=== PATIENT | male | born 1950 | race Caucasian/White ===

== ENCOUNTER → 2016-10-03 | Outpatient (CLI) | payer OTHER | LOC: MOB LAB 11:10 | DX: J02.9 Acute pharyngitis, unspecified (principal); R05 Cough; B34.9 Viral infection, unspecified | CPT/HCPCS: 87400; 87880; 99213; G0463 ==

== ENCOUNTER 2019-01-10 05:57 | Inpatient (IN) ==
[~2019-01-10 05:57] MED LIST: ACETAMINOPHEN 500 MG TABLET PO ONE; CELECOXIB 200 MG CAPSULE PO ONE; GABAPENTIN 300 MG CAPSULE PO ONE; LIDOCAINE W/ SODIUM BICARB 0.5 ML SYR ONE; Lactated Ringers 1,000 ML PRIMARY IV ONE; PANTOPRAZOLE 20 MG TABLET.DR PO ONE; ceFAZolin Inj 2gm (Premix) 2 GM/50 ML BAG IV ONE
[2019-01-10] MEDS ORDERED: ACETAMINOPHEN 500 MG TABLET PO ONE (06:00)
[2019-01-10] MEDS ORDERED: CELECOXIB 200 MG CAPSULE PO ONE (06:00)
[2019-01-10] MEDS ORDERED: LIDOCAINE W/ SODIUM BICARB 0.5 ML SYR SUBD ONE (06:00)
[2019-01-10] MEDS ORDERED: PANTOPRAZOLE 20 MG TABLET.DR PO ONE (06:00)
[2019-01-10] MEDS ORDERED: ceFAZolin Inj 2gm (Premix) 2 GM/50 ML BAG IV ONE (06:00)
[2019-01-10] MEDS ORDERED: Nasal Sanitizer POPSWAB ampule 3 AMP (Nozin) PREOP DOSE ENOS SCH (06:00)
[2019-01-10] MEDS ORDERED: GABAPENTIN 300 MG CAPSULE PO ONE (06:00)
[2019-01-10] MEDS: Lactated Ringers 1,000 ML PRIMARY IV SCH ×3 (06:27→14:23)
[2019-01-10] MEDS ORDERED: Sodium Chloride 0.9% vial 40 ML ONE (06:55)
[2019-01-10] MEDS ORDERED: BUPivacaine Liposome/PF (Exparel) Inj 20ml vial INFIL ONE (06:56)
[2019-01-10] MEDS ORDERED: BACITRACIN 50,000 UNIT VIAL IRRIG ONE (06:56)
[2019-01-10] MEDS ORDERED: Ketorolac Inj 30 MG, BUPivacaine Inj 0.25% PF 150 MG SPLASH ONE ×2 (07:30)
[2019-01-10 07:35] LABS: BILIRUBIN,URINE NEGATIVE (NEG); CLARITY,URINE CLEAR (CLEAR); COLOR,URINE YELLOW (Y); GLUCOSE, URINE (UA) NEGATIVE (NEG); OCCULT BLOOD,URINE NEGATIVE (NEG); PROTEIN,URINE NEGATIVE (NEG); UROBILINOGEN,URINE 0.2 EU/dL (0.2)
[2019-01-10 07:36] LABS: URINE SAMPLE TYPE CLEAN CATCH URINE
[2019-01-10] MEDS ORDERED: MIDAZOLAM HCL 2 MG/2 ML VIAL ONE (07:38)
[2019-01-10] MEDS ORDERED: PROPOFOL 10 MG/1 ML (200 MG/20 ML) VIAL IV ONE ×2 (07:38)
[2019-01-10] MEDS ORDERED: SUGAMMADEX SODIUM 200 MG/2 ML VIAL IV ONE (08:29)
[2019-01-10] MEDS ORDERED: ONDANSETRON 4 MG/2 ML VIAL ONE (08:30)
[2019-01-10] MEDS ORDERED: KETOROLAC 30 MG/1 ML VIAL ONE (08:30)
[2019-01-10] MEDS ORDERED: TRANEXAMIC ACID 1,000 MG / 10 ML VIAL ONE ×2 (08:30→08:31)
[2019-01-10] MEDS ORDERED: fentaNYL Inj 250 MCG/5 ML VIAL ONE (08:32)
[2019-01-10] MEDS ORDERED: HYDROmorphone 2 MG/1 ML ONE ×2 (08:32→11:59)
[2019-01-10] MEDS ORDERED: SUCCINYLCHOLINE CHLORIDE 20 MG/1 ML - 10 ML ONE (10:16)
[2019-01-10] MEDS ORDERED: ROCURONIUM 10 MG/1 ML - 5 ML VIAL IVP ONE (10:17)
[2019-01-10] MEDS ORDERED: LIDOCAINE W/ SODIUM BICARB 0.5 ML SYR SUBD PRN (10:59)
[2019-01-10] MEDS ORDERED: ONDANSETRON 4 MG/2 ML VIAL IVP PRN ×2 (10:59→12:36)
--- NOTE | 2019-01-10 10:59 | CRNA.PROGR ---
Anesthesia Recovery Phase I - Post Anesthesia Evaluation Patient's Condition on Arrival in Phase I: Stable Patient's Condition on Arrival in Phase II: Stable (stable at patient handoff and DC to floor) Pain Level: 4
--- NOTE | 2019-01-10 10:59 | CRNA.PROGR ---
Anesthesia Time - Procedure/Recovery Time Start Date: 01/10/19 End Date: 01/10/19 Anesthesia : Time In: 07:59 Anesthesia : Time Out: 10:58 Anesthesia : Total Time: 179 - Total Anesthesia Time Total Anesthesia Time (minutes): 179 - Other Weight: 98.883 kg Height: 6 ft 1 in Body Mass Index (BMI): 28.8 Physical Status: P3 Anesthesia Type: General Anesthesia : ET (to pacu stable, stable at handoff)
--- NOTE | 2019-01-10 11:01 | CRNA.PROGR ---
Anesthesia Note - Progress Notes Anesthesia Progress Note: stabel at patient handoff, and at D/C to floor - NAARC
--- NOTE | 2019-01-10 11:06 | ORTHO.OP ---
Surgery Date: 01/16/19 Preoperative Diagnosis: left hip OA Postoperative Diagnosis: same Procedure: Left IDALMIS Surgeon: Prashant Cabral MD Ferryboat Helper: Leatha Kennedy PA-C Anesthesia Provider: Reji Alonso MD Anesthesia Type: General, Regional (spinal) Estimated Blood Loss (mL): 100 Fluids: 1600 mL LR Pathology: none Findings: See Operative Note Indications: See Operative Note Complications: None
[2019-01-10] MEDS: fentaNYL Inj 100 MCG/2 ML VIAL IVP PRN ×4 (11:15→11:52)
[2019-01-10] MEDS ORDERED: fentaNYL Inj 100 MCG/2 ML VIAL ONE ×2 (11:17→11:43)
[2019-01-10 11:32] LABS: Hematocrit [HCT] 40.8 % (42.0-52.0)
[2019-01-10] MEDS ORDERED: HYDROmorphone 2 MG/1 ML IVP PRN (11:58)
--- NOTE | 2019-01-10 12:18 | DI ---
XR HIP COMPLETE MIN 2VW U/L,01/10/2019 10:54 AM: Clinical History: Left hip pain Previous Exam: Jan 11 2018 Findings: AP view of the pelvis, AP view of the left hip and crosstable lateral view of the left hip are obtain ed, and demonstrate anatomic alignment without fractures. Patient is status post left total hip arthr oplasty. Postsurgical changes are seen in the deep pelvis. There are degenerative changes involving the right hip with osteophyte formation. There is no evidence of hardware loosening. There is a metallic density overlying the deep pelvis. This is believed to be overlying the skin. A nonobstructive bowel gas pattern is seen. No pathologic calcifications are seen. Impression: Postsurgical changes consistent with left total hip arthroplasty. There is no fracture and no evidenc e of hardware loosening.
[2019-01-10] MEDS ORDERED: CALCIUM CARBONATE 500 MG (TUMS) CHEWABLE TABLET PO PRN (12:36)
[2019-01-10] MEDS ORDERED: MAG HYDROX/AL HYDROX/SIMETH 30 ML SUSP PO PRN (12:36)
[2019-01-10] MEDS ORDERED: LIDOCAINE HCL 2 % 10 ML JELLY URO-JECT TOPICAL PRN (12:36)
[2019-01-10] MEDS ORDERED: diphenhydrAMINE 25 MG CAPSULE PO PRN (12:36)
[2019-01-10] MEDS ORDERED: BISACODYL 5 MG TABLET PO PRN (12:36)
--- NOTE | 2019-01-10 13:28 | PDOC ---
HPI - History of Present Illness Date of Service: 01/10/19 Time of Service: 13:23 Chief Complaint: Left hip pain History of Present Illness: This very pleasant 68-year-old male with hypertension, GERD, and hypothyroidism, as well as left hip posterior arthritis who presented today for a left hip replacement performed by Dr. Cabral. See his postoperative notes regarding procedure performed. The patient had had pain in the left hip for some time. He tried tramadol. He failed conservative measures in opted for that replacement today. He was seen by his primary care physician prior to the procedure. Postoperatively, he denies any chest pain, shortness breath, nausea or vomiting and states his pain is well controlled. Past Medical History Medical History: 1. Hypertension. 2. GERD. 3. Hypothyroidism. 4. History of colon cancer. 5. History of thyroid cancer. 6. History of renal cell cancer Surgical History: History of partial nephrectomy (Acute). History of prostate biopsy (Acute). History of thyroidectomy (Acute). History of colonoscopy with polypectomy (Resolved). History of esophagogastroduodenoscopy (Resolved). History of lithotripsy (Resolved). 1. History of musculoskeletal system surgery. 2. Status post cholecystectomy. 3. Status post knee surgery. 4. Status post shoulder surgery. 5. Status post tonsillectomy Pertinent Family History: He states both his parents passed on from cancer Past Social History: Does not currently smoke. for 29 years. Has 3 children from a prior marriage. Does not drink alcohol. Tobacco Use: Former Smoker Do you dip or chew tobacco: No In the Past 12 Months, Have Used or Abuse Any of the Following Substance: None Alcohol Use: None Medication / Allergies Home Medications: Home Medications Medication Instructions Recorded Confirmed Omeprazole Magnesium [Prilosec Otc] 20 mg PO DAILY 10/12/17 01/10/19 amlodipine 5 mg tablet 5 mg PO QDAY #90 tab 07/12/18 01/10/19 levothyroxine 25 mcg capsule 25 mcg PO QDAY #90 cap 07/12/18 01/10/19 Hydrocodone/Acetaminophen 1 - 2 ea PO Q4-6H PRN #70 tab 01/10/19 [Hydrocodon-Acetaminoph 7.5-325] Allergies/Adverse Reactions: Allergies Allergy/AdvReac Type Severity Reaction Status Date / Time morphine Allergy Severe NAUSEA Verified 01/10/19 12:37 Review of Systems - Respiratory Respiratory: REPORTS: Negative System Review - Cardiovascular Cardiovascular: REPORTS: Negative System Review - Gastrointestinal Gastrointestinal / Abdominal: REPORTS: Negative System Review - Genitourinary Genitourinary: REPORTS: Negative System Review - Musculoskeletal Musculoskeletal: REPORTS: See HPI Exam - Vitals Vital Signs: Vital Signs Temperature 96.9 F Pulse Rate [Pulse Oximeter] 69 Pulse Rate 68 Respiratory Rate 18 Blood Pressure [Left Arm] 141/83 Blood Pressure 156/92 Pulse Ox 95 Oxygen Flow Rate 3 Oxygen Delivery Method Nasal Cannula Height 6 ft 1 in Weight 218 lb - General General Appearance: No Acute Distress, Cooperative - Head Head Exam: Normal Inspection, Normocephalic, Atraumatic - Eye Eye Exam: POSITIVE: No Scleral Icterus - ENT ENT Exam: POSITIVE: Mucous Membranes Moist - Neck Neck Exam: Normal Inspection, No Tenderness, No Lymphadenopathy, No Thyromegaly, JVP is not Raised - Respiratory Respiratory Exam: POSITIVE: Clear to Auscultation - Bilaterally, Breathing Non Labored - Cardiovascular Cardiovascular Exam: POSITIVE: RRR, No Murmur, No Clicks, No Gallops, No Rubs, No JVD - GI/Abdominal GI/Abdominal Exam: POSITIVE: Normal Bowel Sounds, Non Tender, Non Distended, Soft - Rectal Rectal Exam: POSITIVE: Deferred - External Exam: POSITIVE: Deferred Exam: POSITIVE: Deferred - Extremities Extremities Exam: POSITIVE: No Clubbing Present, No Edema Present, No Cyanosis Present Additional Extremities Exam Details: The left hip has an incision that is dressed. Dressing is clean, dry, intact. - Neurological Neurological Exam: POSITIVE: Alert, Oriented x 3, No Facial Droop, Speech Intact / Clear - Psychiatric Psychiatric Exam: POSITIVE: Normal Affect, Normal Mood Results - Labs CBC and BMP: 01/10/19 11:29 Additional Lab Results: 01/03/19 01/03/19 01/03/19 10:02 10:02 10:02 WBC 5.90 Hgb Plt Count 222 PT 12.8 H INR 1.11 Sodium 143 Potassium 4.2 Chloride 106 Carbon Dioxide 23 Anion Gap 14 BUN 24 H Creatinine 1.1 Estimated GFR > 60 Glucose 90 Calculated Osmolality 299.0 H Calcium 9.3 Total Bilirubin 0.6 AST 40 ALT 34 Alkaline Phosphatase 58 Albumin 4.4 Globulin 2.8 Albumin/Globulin Ratio 1.50 01/10/19 11:29 WBC Hgb 14.0 Plt Count PT INR Sodium Potassium Chloride Carbon Dioxide Anion Gap BUN Creatinine Estimated GFR Glucose Calculated Osmolality Calcium Total Bilirubin AST ALT Alkaline Phosphatase Albumin Globulin Albumin/Globulin Ratio - EKG Data -: EKG Interpreted by Me (From 01/03/2019) Rate: Normal EKG Shows Normal: Sinus Rhythm Assessment and Plan - Patient Problems (1) Hypertension Current Visit: No Status: Chronic Code(s): I10 - Essential (primary) hypert ension Qualifiers: Hypertension type: essential hypertension Qualified Code(s): I10 - Essential (primary) hypertension (2) GERD (gastroesophageal reflux disease) Current Visit: Yes Status: Acute Code(s): K21.9 - Gastro-esophageal reflux disease without esophagitis (3) Hypothyroidism Current Visit: Yes Status: Chronic Code(s): E03.9 - Hypothyroidism, unspecified Qualifiers: Hypothyroidism type: postoperative Qualified Code(s): E89.0 - Postprocedural hypothyroidism (4) Status post left hip replacement Current Visit: Yes Status: Acute Code(s): Z96.642 - Presence of left artificial hip joint - Assessment / Plan Additional Assessment/Plan Details: PT and OT, DVT prophylaxis, and pain management as per orthopedics. I did recommend having the patient remain on his home medications for hypertension including Norvasc, and also continue thyroid replacement while in the hospital. Thank you for this consult. It will be the Hospitalist services pleasure to continue to advise on medical issues during the hospital stay
[2019-01-10] MEDS: AmLODIPine Tab 5 MG TABLET PO SCH (14:21)
[2019-01-10] MEDS: HYDROcodone-APAP 7.5 MG-325 MG TABLET PO PRN ×2 (14:23→19:19)
[2019-01-10] MEDS: ceFAZolin Inj 2gm (Premix) 2 GM/50 ML BAG IV SCH (17:07)
[2019-01-10] MEDS: DOCUSATE 100 MG CAPSULE PO SCH (20:54)
[2019-01-11] MEDS: ceFAZolin Inj 2gm (Premix) 2 GM/50 ML BAG IV SCH (00:12)
[2019-01-11] MEDS: Lactated Ringers 1,000 ML PRIMARY IV SCH ×2 (02:26→09:49)
[2019-01-11] MEDS: HYDROcodone-APAP 7.5 MG-325 MG TABLET PO PRN ×2 (04:49→10:41)
[2019-01-11 05:22] LABS: Hemoglobin [HGB] 11.3 g/dL (14.0-18.0); MEAN CORPUSCULAR HEMOGLOBIN 30.7 PG (27-31); MEAN CORPUSCULAR HGB CONC 34.2 g/dL (33-37); MEAN CORPUSCULAR VOLUME 89.7 FL (80-90); RED BLOOD COUNT 3.68 10^6/uL (4.70-6.10)
[2019-01-11 05:28] LABS: BLOOD UREA NITROGEN 15 mg/dL (7-22); BUN/CREATININE RATIO 16.66 (6-20)
[2019-01-11] MEDS ORDERED: LEVOTHYROXINE 25 MCG TABLET PO SCH (05:30)
[2019-01-11] MEDS ORDERED: OMEPRAZOLE 20 MG CAPSULE PO SCH (07:00)
[2019-01-11] MEDS: AmLODIPine Tab 5 MG TABLET PO SCH (08:14)
[2019-01-11] MEDS: DOCUSATE 100 MG CAPSULE PO SCH (08:15)
[2019-01-11 08:45] VITALS: BP 145/77; RESP 16; TEMP 97.8; O2SAT 91
[2019-01-11] MEDS ORDERED: ENOXAPARIN SODIUM 30 MG/0.3 ML SYRINGE SUBCUT SCH (09:00)
--- NOTE | 2019-01-11 10:44 | ORTHO.PROG ---
Last Taken Vital Signs: Vital Signs - Last Taken Temperature 97.8 F 01/11/19 08:40 Pulse Rate 75 01/11/19 08:40 Respiratory Rate 16 01/11/19 08:40 Blood Pressure 145/77 01/11/19 08:40 Pulse Ox 91 01/11/19 08:40 Subjective: Patient reports he slept ok last night. His pain is under control with PO pain meds. He has already been up walking to the bathroom without difficulties. He states he feels ready to go home today. Denies any CP, calf pain, SOB, F/C, paresthesias. Objective: Laboratory Results 01/10/19 01/11/19 01/11/19 11:29 04:25 04:25 WBC 11.11 H RBC 3.68 L Hgb 14.0 11.3 L Hct 40.8 L 33.0 L MCV 89.7 MCH 30.7 MCHC 34.2 RDW Std Deviation 42.8 RDW Coeff of Kush 13.5 Plt Count 197 MPV 11.0 Sodium 140 Potassium 4.2 Chloride 105 Carbon Dioxide 22 L Anion Gap 13 BUN 15 Creatinine 0.9 Estimated GFR > 60 BUN/Creatinine Ratio 16.66 Glucose 142 H Calculated Osmolality 292.0 Calcium 7.9 L Radiographs of the left hip show s/p Left IDALMIS with well fixed and positioned components. On exam, the prevena dressing is intact holding suction. Patient is A&O x 3 without any acute distress. NV intact. Negative calf tenderness. Assessment: POD 1 s/p routine Left IDALMIS overall doing well and ready to be discharged home. Plan: * Pain meds: continue hydrocodone prn upon discharge * DVT ppx: discharge home on ASA 81mg 1 tablet daily x 6 weeks and portable SCDs * Wound care: leave Prevena dressing in place until first PO appointment; may shower, but do not saturate dressing * WBAT with walker * begin outpatient PT by Wednesday * posterior hip restrictions * discharge home once cleared by PT * follow-up in 1 week as scheduled with ortho
--- NOTE | 2019-01-11 11:56 | PT.PROG ---
Progress Note Progress Note: S. Patient stated that he is feeling good this morning. He feels that he is ready to go home. O. Patient ambulated 150 feet around the nurses station and ascended and descended 3 stairs. Patient returned to his room where he was left in his chair with alarm and call light. A. Patient tolerated ambulation and stair training well with stand by guard assist. P. Patient has met all goals.
--- NOTE | 2019-01-11 14:44 | PTI REPORT ---
Thank you for the referral of Shaw Lares. He was seen on 01/10/19 for an inpatient evaluation status post left total hip arthroplasty. SUBJECTIVE: The patient is a 68-year-old male. The patient reports he currently does not feel any pain. He states he is eager to get up and walk around. The patient states that he lives in [place] with his and step son. He states he has one step to get into the house. The patient lives in a ranch style home. Prior to surgery the patient did not use an assistive device. The patient verbalized that he would like to go home by tomorrow afternoon. The patient reported that he did have a fall in the beginning of the winter; however, he fell into snow, so that broke his fall and he did not receive any injuries from that fall. PAST MEDICAL HISTORY: Past medical history can be found in the patient's medical record. OBJECTIVE FINDINGS: Ambulation: The patient was able to walk 100 feet without any pain and was able to put the majority of his weight through his left lower extremity. The patient demonstrated a good gait pattern; however, he needed minor cueing to keep the walker within arm's distance and to make sure that he is not pivoting the walker, but instead placing the walker and walking into it. The patient also needed verbal cues to help remind him to not pivot on that left hip. ASSESSMENT: The patient has a good prognosis. Problem List: Decreased strength in the left hip Patient must adhere to total hip precautions Short-Term Goals: To be met by discharge from inpatient: Patient will be able to transfer from bed to stand independently. Patient will be able to ambulate 100 feet with walker, weight-bearing as tolerated. Patient will be able to ascend and descend 5 stairs with walker, weight-bearing as tolerated. Patient will be instructed in total hip precautions. Long-Term Goals: To be met following discharge from inpatient: Patient will be seen by outpatient physical therapy. TREATMENT PLAN: Patient will be seen B.I.D during the week and one time per day over the weekend as an inpatient for transfers, gait training, stair training, and instruction in total hip precautions. INITIAL TREATMENT: Treatment today consisted of the initial evaluation followed by one unit of functional activity with working on walking. Dictated by: ELIZABETH Miller Supervised by: TEA Zuñiga
--- NOTE | 2019-01-11 14:52 | DCSUMMARY ---
Hospitalization Summary Admit Date: 01/10/2019 Discharge Date: 01/11/19 Primary Diagnosis:: status post left hip replacement Hospital Course: This very pleasant 68-year-old male with end-stage chest arthritis in the left hip. He failed conservative measures and opted for hip replacement done by Dr. Cabral on 01/10/2019. See his surgical notes regarding the procedure. The patient had an uneventful recovery from an orthopedic standpoint, see the orthopedic progress notes regarding this patient's stay. The orthopedic service will be managing and DVT prophylaxis, pain medications, and PT and OT instructions. His medical conditions, including hypertension, GERD, and hypothyroidism, did not have any exacerbations during hospital stay. Today, no completes of chest pain, shortness breath, nausea or vomiting. He states that his hip pain is present but controlled and he is doing very well with therapy and is ready to go home. Assessment and Plan: 1. As per discharge assessments noted 2. Disposition: Patient is discharged home. 3. Condition on discharge, stable and improved. 4. Diet: regular diet 5. Activities: resume activities as per orthopedic instructions 6. Follow-Up: 1. Dr. Arora one week 2. Dr. Cabral as recommended 7. Medications at the Time of Discharge: Home Medications Medication Instructions Recorded Confirmed amlodipine 5 mg tablet 5 mg PO QDAY #90 tab 07/12/18 01/10/19 levothyroxine 25 mcg capsule 25 mcg PO QDAY #90 cap 07/12/18 01/10/19 Tramadol HCl 50 mg PO BID 01/11/19 01/11/19 Pain medications and aspirin for DVT prophylaxis as per orthopedics 8. Time, care, counseling and coordination of care for this discharge is less than 30 minutes. Exam - Vitals Vital Signs: Vital Signs Temperature 97.8 F Temperature Source Temporal Artery Scan Pulse Rate [Pulse Oximeter] 75 Pulse Rate 64 Respiratory Rate 16 Blood Pressure [Left Arm] 145/77 Blood Pressure 142/88 Pulse Ox 91 Oxygen Flow Rate 2 Oxygen Delivery Method Nasal Cannula Height 6 ft 1 in Weight 218 lb - General General Appearance: No Acute Distress, Cooperative - Eye Eye Exam: POSITIVE: No Scleral Icterus - ENT ENT Exam: POSITIVE: Mucous Membranes Moist - Neck Neck Exam: JVP is not Raised - Respiratory Respiratory Exam: POSITIVE: Clear to Auscultation - Bilaterally, Breathing Non Labored - Cardiovascular Cardiovascular Exam: POSITIVE: RRR, No Murmur, No Clicks, No Gallops, No Rubs, No JVD - GI/Abdominal GI/Abdominal Exam: POSITIVE: Normal Bowel Sounds, Non Tender, Non Distended, Soft - Extremities Extremities Exam: POSITIVE: No Clubbing Present, No Edema Present, No Cyanosis Present - Neurological Neurological Exam: POSITIVE: Alert, Oriented x 3, Normal Gait (I observed the patient walk in the hallway with therapy and he did very well with his walker), No Facial Droop, Speech Intact / Clear, Moves All Extremities Equally Data Peritnent Studies: Laboratory Results 01/11/19 01/11/19 04:25 04:25 WBC 11.11 H RBC 3.68 L Hgb 11.3 L Hct 33.0 L MCV 89.7 MCH 30.7 MCHC 34.2 RDW Std Deviation 42.8 RDW Coeff of Kush 13.5 Plt Count 197 MPV 11.0 Sodium 140 Potassium 4.2 Chloride 105 Carbon Dioxide 22 L Anion Gap 13 BUN 15 Creatinine 0.9 Estimated GFR > 60 BUN/Creatinine Ratio 16.66 Glucose 142 H Calculated Osmolality 292.0 Calcium 7.9 L Patient Problems - Patient Problem List (1) Status post left hip replacement Status: Acute Code(s): Z96.642 - Presence of left artificial hip joint Category: Surgical (2) Hypertension Status: Chronic Code(s): I10 - Essential (primary) hypertension Qualifiers: Hypertension type: essential hypertension Qualified Code(s): I10 - Essential (primary) hypertension Category: Medical (3) GERD (gastroesophageal reflux disease) Status: Acute Code(s): K21.9 - Gastro-esophageal reflux disease without esophagitis Category: Medical (4) Hypothyroidism Status: Chronic Code(s): E03.9 - Hypothyroidism, unspecified Qualifiers: Hypothyroidism type: postoperative Qualified Code(s): E89.0 - Postprocedural hypothyroidism Category: Medical
--- NOTE | 2019-01-11 16:32 | OTI REPORT ---
Thank you for the referral of Shaw Lares. He was seen on 01/11/19 for an occupational therapy inpatient evaluation status post left total hip arthroplasty. SUBJECTIVE: The patient is a 68-year-old male who is being seen secondary to having a left posterior approach total hip arthroplasty. The patient lives at home with his and was independent with ADLs prior to admission. PAST MEDICAL HISTORY: Past medical history can be found in the patient's medical record. OBJECTIVE FINDINGS: General observations: While sitting edge of bed we went over the patient's hip precautions. Activities of daily living: The patient was issued a business development agent, a sock aide, a bath sponge, and a long handled shoe horn to improve his independence with ADLs. The patient completed donning and doffing socks with business development agent and sock aide. Transfers: The patient required stand by assist and verbal cues to kick his left leg forward when completing functional transfers. ASSESSMENT: The patient is doing well. He may benefit from one more session; however, he may be discharged this afternoon. He was issued a business development agent, sock aide, bath sponge, and shoe horn for increased independence at home to follow his posterior hip precautions. The patient already has a shower chair and a high rise toilet seat. Short-Term Goals: To be met by discharge from inpatient: Patient will be able to complete all functional transfers with stand by assist. Long-Term Goals: To be met following discharge from inpatient: Patient will return home, demonstrating safety and independence with all functional activities and ADLs using adaptive devices. TREATMENT PLAN: Patient may be seen for one more visit. INITIAL TREATMENT: Treatment today consisted of the initial evaluation followed by ADLs with adaptive devices. KASSI
== END 2019-01-11 13:05 | disposition home or self-care (01) | DRG 509 ==
LOC: OPS 05:57 → MED/SURG 12:16
PROVIDERS: ADMIT Orthopaedic Surgery; ATTEND Orthopaedic Surgery